=== PATIENT | male | born 1985 | race Caucasian/White ===

== ENCOUNTER 2019-08-21 19:50 | Emergency (ER) | payer OTHER ==
[2019-08-21 20:03] VITALS: BP 125/68; PULSE 62; TEMP 97.6; BMI 32.5
--- NOTE | 2019-08-21 20:33 | PDOC ---
Documentation entered by Radha Whelan SCRIBE, acting as scribe for Shekhar Rivera MD. Shekhar Rivera MD: This documentation has been prepared by the Cleopatra rodriguez Xhesika, SCRIBE, under my direction and personally reviewed by me in its entirety. I confirm that the documentation accurately reflects all work, treatment, procedures, and medical decision making performed by me. History of Present Illness - General Chief Complaint: Respiratory Stated Complaint: PNEUMONIA Time Seen by Provider: 08/21/19 19:54 History Source: Patient Exam Limitations: No Limitations - History of Present Illness Initial Comments: 08/21/19 20:20 The patient is a 34 y/o male with a H crohn's disease and asthma who presents to the ED for 3 weeks of productive cough with green/ yellow sputum, generalized fatigue and SOB. Pt states he was seen at Urgent care on 08/01/2019 and was prescribed albuterol and prednisone with no relief of symptoms, so, patient went back to Urgent Care in 08/12/2019 has x ray which showed fluid around his lungs and was d/c with azithromycin and amoxicillin. Pt states his symptoms are worse at night and when laying down. Pt states he finished taking all abx with no improvement of symptoms, prompting his arrival to the ED today. PAST MEDICAL HISTORY: crohn's disease and asthma PAST SURGICAL HISTORY: no significant history FAMILY HISTORY: no pertinent history SOCIAL HISTORY: Pt lives with family and is employed. MEDICATIONS: reviewed ALLERGIES: As per nursing notes 08/21/19 20:29 Assessment and plan: This is a 34-year-old male who comes in complaining of 3 weeks of upper respiratory cough type symptoms. Patient has had albuterol and prednisone as well as a Z-Naeem and some amoxicillin. Patient here in the emergency room was noted to have an intermittent mostly dry cough. Chest x-ray was done that was negative for any acute pathology. Prescription for Tessalon Perles was sent to patient's pharmacy and he was referred to a primary care physician. Past History - Past Medical History Allergies/Adverse Reactions: Allergies Allergy/AdvReac Type Severity Reaction Status Date / Time No Known Allergies Allergy Verified 05/04/15 08:33 Home Medications: Ambulatory Orders Albuterol Sulfate Inhaler - [Ventolin Hfa Inhaler -] 2 inh PO Q6H 08/21/19 Benzonatate [Tessalon Pearls -] 100 mg PO TID #21 capsule 08/21/19 Asthma: Yes GI Disorders: Yes (CHRON'S DISEASE) - Psycho Social/Smoking Cessation Hx Smoking History: Never smoked Hx Alcohol Use: No Drug/Substance Use Hx: No Review of Systems - Review of Systems Able to Perform ROS?: Yes Comments:: 08/21/19 20:20 General: No fevers or chills, no weight loss. +generalized fatigue HEENT: No change in vision. No sore throat,. No ear pain CardioVascular: No chest pain. +shortness of breath Respiratory:No wheezing. +productive cough with green/ yellow sputum Gastrointestinal: no nausea, vomiting, diarrhea or constipation, No rectal bleeding Genitourinary: No dysuria, hematuria, or frequency Musculoskeletal: No joint or muscle pain or swelling Neurologic: No headache, vertigo, dizziness or loss of consciousness Psychiatric: nor depression Skin: No rashes or easy bruising Endocrine: no increased thirst or abnormal weight change Allergic: no skin or latex allergy All other systems reviewed and normal *Physical Exam - Vital Signs Last Vital Signs Temp Pulse Resp BP Pulse Ox 97.6 F 62 17 125/68 99 08/21/19 19:51 08/21/19 19:51 08/21/19 19:51 08/21/19 19:51 08/21/19 19:51 - Physical Exam 08/21/19 20:34 GENERAL: The patient is awake, alert, and fully oriented, in no acute distress. HEAD: Normal with no signs of trauma. EYES: Pupils equal, round and reactive to light, extraocular movements intact, sclera anicteric, conjunctiva clear. Chest: Nontender to palpation Cardiac: S1-S2 normal, regular rate and rhythm, no murmurs rubs or gallops Respiratory: Lungs clear to auscultation bilateral EXTREMITIES: Normal range of motion, no edema. NEUROLOGICAL: Normal speech, normal gait. PSYCH: Normal mood, normal affect. SKIN: Warm, Dry, normal turgor, no rashes or lesions noted. ED Treatment Course - RADIOLOGY Radiology Studies Ordered: Category Date Time Status CHEST PA & LAT [RAD] Stat Radiology 08/21/19 20:06 Ordered Discharge - Discharge Information Problems reviewed: Yes Clinical Impression/Diagnosis: Persistent cough for 3 weeks or longer Condition: Good Disposition: HOME - Admission No - Additional Discharge Information Prescriptions: Benzonatate [Tessalon Pearls -] 100 mg PO TID #21 capsule - Follow up/Referral Referrals: Beny Gandhi [Primary Care Provider] - - Patient Discharge Instructions Additional Instructions: I sent a prescription to your pharmacy for cough suppression, Tessalon Perls. Make sure you swallow the medication and do not chew it. I am also referring you to a primary care doctor you should receive a call from the group within the next 2 to 3 days to set up an appointment. Return to the emergency department immediately with ANY new, persistent or worsening symptoms. Continue any medications as previously prescribed by your physician. You should follow up with your primary doctor as soon as possible regarding today's emergency department visit. . Please make sure your doctor reviews the results of your emergency evaluation. Thank you for coming to the Emergency Department today for your care. It was a pleasure to see you today. Please note that your evaluation is INCOMPLETE until you follow-up with your doctor. - Post Discharge Activity
== END 2019-08-21 20:37 | disposition home or self-care (01) ==
LOC: FER 19:50
DX: R05 Cough (principal); J45.909 Unspecified asthma, uncomplicated; K50.90 Crohn's disease, unspecified, without complications
CPT/HCPCS: 71046-TC-FY; 99283-25

== ENCOUNTER 2022-01-01 23:12 | Emergency (ER) | payer OTHER ==
[2022-01-01] MEDS ORDERED: IBUPROFEN 600 MG TABLET (FP) PO ONE ×2 (23:18)
[2022-01-01 23:22] VITALS: BP 130/83; PULSE 72; TEMP 98; BMI 30.7
== END 2022-01-01 23:47 | disposition home or self-care (01) ==
LOC: FER 23:12
DX: M54.89 Other dorsalgia (principal); V49.40XA Driver injured in collision with unspecified motor vehicles in traffic accident, initial encounter
CPT/HCPCS: 72070-TC-FY; 99283-25

== ENCOUNTER 2024-06-19 11:29 | Emergency (ER) | payer OTHER ==
[2024-06-19 12:04] VITALS: BP 123/91; PULSE 83; RESP 20; TEMP 98.2; BMI 31.4
[2024-06-19] MEDS ORDERED: KETOROLAC TROMETHAMINE 15 MG/ML VIAL ONE (12:35)
[2024-06-19] MEDS: KETOROLAC TROMETHAMINE 15 MG/ML VIAL IM ONE (12:41)
[2024-06-19] MEDS: LIDOCAINE HCL 5% TOP OINTMENT 50 GM TUBE TP ONE (12:42)
[2024-06-19] MEDS ORDERED: LIDOCAINE 5% TOPICAL PATCH ONE (12:44)
== END 2024-06-19 12:46 | disposition home or self-care (01) ==
LOC: FER 11:29
PROC: 3E0133Z Introduction of Anti-inflammatory into Subcutaneous Tissue, Percutaneous Approach (ICD-10-PCS; principal; 2024-06-19)
DX: M54.6 Pain in thoracic spine (principal)
CPT/HCPCS: 99284-25